=== PATIENT | female | born 1980 | race African-American/Black ===

== ENCOUNTER 2016-11-02 20:40 | Emergency (ER) | payer MEDICAID ==
[~2016-11-02] VITALS: Ht 162.6 cm; Wt 96.6 kg
[~2016-11-02 20:40] MED LIST: METO25 PO; ZOFR4TAB3 SL
[2016-11-02 20:45] VITALS: BP 156/100; PULSE 92; RESP 18; TEMP 98.9; O2SAT 98
[2016-11-02] MEDS ORDERED: predniSONE 20 MG TAB PO ONE (21:15)
[2016-11-02] MEDS ORDERED: diphenhydrAMINE HCL 50 MG CAP PO ONE (21:15)
[2016-11-02] MEDS ORDERED: PRED20 PO (21:21)
[2016-11-02] MEDS ORDERED: FAMO1TAB37 PO (21:21)
--- NOTE | 2016-11-02 21:25 | PD ---
HPI Chief Complaint: Skin Problem Time Seen by Provider: 21:00 Travel History International Travel<30 days: No Contact w/Intl Traveler<30days: No Traveled to known affect area: No History of Present Illness HPI 35-year-old female presents emergency department for evaluation of rash on her upper arms for 3 days. Patient reports the rash originated approximately 3 days ago and has since waxed and waned throughout the day. She reports at times the rash is almost completely resolved and then reappears. She reports the rash is pruritic. She denies any new foods, medications, lotions, detergents. No one else in the home with similar symptoms. No previous allergic reactions. She denies change in voice, difficulty swallowing, shortness of breath, wheezing. She denies any home remedies to treat the rash. PFSH Past Medical History Diminished Hearing: No Hypertension: Yes ?: Not LMP: TWO DAYS AGO : 3 Para: 3 Miscarriage: 0 : 0 Social History Alcohol Use: Yes (OCCASSIONAL WEEKEND) Tobacco Use: No Substance Use: Yes (marijuana occ) Allergies-Medications (Allergen,Severity, Reaction): Coded Allergies: No Known Allergies (Verified , 11/02/16) Reported Meds & Prescriptions Reported Meds & Active Scripts Active Pepcid (Famotidine) 20 Mg Tab 20 Mg PO BID Prednisone 20 Mg Tab 40 Mg PO DAILY Take 40 mg (2 tablets) daily for 5 days Review of Systems Except as stated in HPI: all other systems reviewed are Neg Physical Exam Narrative GENERAL: Well-nourished, well-developed patient. SKIN: Focused skin assessment warm/dry. Urticarial rash bilateral upper extremities. The rash does not extend into the trunk. HEAD: Normocephalic. EYES: No scleral icterus. No injection or drainage. No oropharyngeal swelling. NECK: Supple, trachea midline. No JVD or lymphadenopathy. CARDIOVASCULAR: Regular rate and rhythm without murmurs, gallops, or rubs. RESPIRATORY: Breath sounds equal bilaterally. No accessory muscle use. No wheezing or rhonchi. No respiratory distress. GASTROINTESTINAL: Abdomen soft, non-tender, nondistended. MUSCULOSKELETAL: No cyanosis, or edema. BACK: Nontender without obvious deformity. No CVA tenderness. Data Data Last Documented VS Vital Signs Date Time Temp Pulse Resp B/P Pulse Ox O2 Delivery O2 Flow Rate FiO2 11/02/16 20:45 98.9 92 18 156/100 98 Orders Prednisone (Deltasone) (11/02/16 21:15) Diphenhydramine (Benadryl) (11/02/16 21:15) [facility] Medical Decision Making Medical Screen Exam Complete: Yes Emergency Medical Condition: Yes Differential Diagnosis Urticaria, unspecified rash, contact dermatitis Narrative Course 35-year-old female presents emergency department for evaluation of a rash on her upper extremities for the last 3 days. Patient reports a waxing and waning pattern of the rash. She denies previous history of anaphylaxis or allergic reactions. She denies oropharyngeal swelling, shortness of breath, wheezing. On exam the rash is localized to the lower aspect of her upper extremities. The rash is urticarial in nature. Patient will be treated with steroids and Benadryl. Return precautions discussed with patient. Diagnosis Primary Impression: Rash and nonspecific skin eruption Referrals: engineering librarian Additional Instructions: Take the medication as prescribed. Take [id number] Benadryl 25 mg by mouth every 6 hours as needed for itching and hives. Return to emergency department immediately if he developed shortness of breath, difficulty swallowing, wheezing, or any new concerning symptom. Make an appointment for follow-up with her primary doctor or engineering librarian Scripts Famotidine (Pepcid)20 Mg Tab20 Mg PO BID #8 TAB Ref 0 Prov:Tavia Pugh 11/02/16 Prednisone 20 Mg Tab40 Mg PO DAILY #8 TAB Take 40 mg (2 tablets) daily for 5 days Prov:Tavia Pugh 11/02/16 Disposition: 01 DISCHARGE HOME Condition: Stable Tavia Pugh Nov 02, 2016 21:25
== END 2016-11-02 21:30 | disposition home or self-care (01) ==
LOC: PHEFT 20:40
DX: R21 Rash and other nonspecific skin eruption (principal); I10 Essential (primary) hypertension
CPT/HCPCS: 99283; J7512; Q0163

== ENCOUNTER 2017-05-23 22:04 | Emergency (ER) | payer MEDICAID ==
[~2017-05-23] VITALS: Ht 162.6 cm; Wt 95.0 kg
[~2017-05-23 22:04] MED LIST changes: +FAMO1TAB37 PO; -METO25 PO; +PRED20 PO; -ZOFR4TAB3 SL
[2017-05-23 22:09] VITALS: BP 156/100; PULSE 82; RESP 18; TEMP 98.1; O2SAT 98
[2017-05-23] MEDS ORDERED: METO50TA PO (22:15)
[2017-05-23] MEDS ORDERED: IBUP-232 PO (22:58)
--- NOTE | 2017-05-23 22:58 | PD ---
HPI Chief Complaint: Pain: Acute or Chronic Time Seen by Provider: 22:51 Travel History International Travel<30 days: No Contact w/Intl Traveler<30days: No Traveled to known affect area: No History of Present Illness HPI The patient is a 36-year-old female who complains of pain in the left lateral upper leg and left lateral lower leg around the knee for 4 days. She denies any swelling. She is not on control pills. She has not had any prolonged immobilization. She does not have a history of pulmonary emboli or DVT. She states she cannot be . She denies any chest pain or shortness of breath. PFSH Past Medical History Cardiovascular Problems: Yes (HTN) Diminished Hearing: No Hypertension: Yes Immunizations Current: No Tetanus Vaccination: > 5 Years Influenza Vaccination: No ?: Not LMP: 04-23-17 : 3 Para: 3 Miscarriage: 0 : 0 Past Surgical History Surgical History: No Previous Surgery Social History Alcohol Use: Yes (OCCASSIONAL WEEKEND) Tobacco Use: No Substance Use: Yes (marijuana occ) Allergies-Medications (Allergen,Severity, Reaction): Coded Allergies: No Known Allergies (Verified Adverse Reaction, Unknown, 05/23/17) Reported Meds & Prescriptions Reported Meds & Active Scripts Active Reported Metoprolol Tartrate 50 Mg Tab 50 Mg PO BID Review of Systems Except as stated in HPI: all other systems reviewed are Neg Physical Exam Narrative GENERAL: The patient is alert, oriented 3 in minimal apparent distress with her left leg discomfort. She is slightly obese. Her vital signs show blood pressure 156/100 but otherwise normal. SKIN: Focused skin assessment warm/dry. HEAD: Atraumatic. Normocephalic. EYES: Pupils equal and round. No scleral icterus. No injection or drainage. ENT: No nasal bleeding or discharge. Mucous membranes pink and moist. NECK: Trachea midline. No JVD. CARDIOVASCULAR: Regular rate and rhythm. No murmur appreciated. RESPIRATORY: No accessory muscle use. Clear to auscultation. Breath sounds equal bilaterally. GASTROINTESTINAL: Abdomen soft, non-tender, nondistended. Hepatic and splenic margins not palpable. MUSCULOSKELETAL: No obvious deformities. No clubbing. No cyanosis. No edema. There is no calf vein tenderness present, no swelling of the left leg and Homans sign is negative and no cord is palpated in the calf. NEUROLOGICAL: Awake and alert. No obvious cranial nerve deficits. Motor grossly within normal limits. Normal speech. PSYCHIATRIC: Appropriate mood and affect; insight and judgment normal. Data Data Last Documented VS Vital Signs Date Time Temp Pulse Resp B/P (MAP) Pulse Ox O2 Delivery O2 Flow Rate FiO2 05/23/17 22:15 (118) 05/23/17 22:09 98.1 82 18 98 MDM Medical Decision Making Medical Screen Exam Complete: Yes Emergency Medical Condition: Yes Medical Record Reviewed: Yes Differential Diagnosis Muscle strain leg, DVT-unlikely, fasciitis left leg, myofascial strain left leg Narrative Course At this time the patient has a muscle ache in her left leg without any indications of a DVT. The patient was told the signs and symptoms of DVT and told to return immediately should they occur. Diagnosis Primary Impression: Muscle strain of left lower leg Patient Instructions: General Instructions Departure Forms: Tests/Procedures Additional Instructions: If you have any of the signs that mentioned like swelling, tenderness in the back of the leg or a "cord" palpated in the back of the leg please return immediately and we will do an ultrasound. Otherwise follow-up with her primary care physician this week. Take the ibuProfen one tablet 3 times daily. Med/Other Pt SpecificInfo: Prescription(s) given Scripts Ibuprofen (Ibuprofen) 600 Mg Tab 600 MG PO TID, #44 TAB 0 Refills Prov: Jv Ingram MD 05/23/17 Disposition: 01 DISCHARGE HOME Condition: Stable Jv Ingram MD May 23, 2017 22:58
[2017-05-23] MEDS ORDERED: IBUPROFEN 600 MG TAB PO ONE (23:00)
== END 2017-05-23 23:18 | disposition home or self-care (01) ==
LOC: PHEFT 22:04
DX: S86.912A Strain of unspecified muscle(s) and tendon(s) at lower leg level, left leg, initial encounter (principal); I10 Essential (primary) hypertension
CPT/HCPCS: 99283

== ENCOUNTER 2017-09-30 21:41 | Emergency (ER) | payer MEDICAID ==
[~2017-09-30] VITALS: Ht 162.6 cm; Wt 96.4 kg
[~2017-09-30 21:41] MED LIST changes: -FAMO1TAB37 PO; +IBUP-232 PO; +METO50TA PO; -PRED20 PO
[2017-09-30 21:52] VITALS: BP 177/100; PULSE 85; RESP 16; TEMP 99.1; O2SAT 99
[2017-09-30 22:55] VITALS: BP 168/76; PULSE 72; RESP 16; O2SAT 98
--- NOTE | 2017-09-30 22:59 | PD ---
HPI Chief Complaint: Rn Circulating Problem/Complaint Time Seen by Provider: 22:56 Travel History International Travel<30 days: No Contact w/Intl Traveler<30days: No History of Present Illness HPI 36-year-old female patient with history of previous vaginal yeast infection, currently about 5 weeks according to her dates, does not have [facility] follow-up yet, here because she has had whitish discharge and itching, thinks she has a vaginal yeast infection. She denies any abdominal pains, fevers, bleeding, or other symptoms. Modifying Factors: None Associated Signs & Symptoms: Vaginal area itching Risk Factors: PFSH Past Medical History Cardiovascular Problems: Yes (HTN) Diminished Hearing: No Hypertension: Yes Immunizations Current: No : 3 Para: 3 Miscarriage: 0 : 0 Social History Alcohol Use: Yes (OCCASSIONAL WEEKEND) Tobacco Use: No Substance Use: Yes (marijuana occ) Allergies-Medications (Allergen,Severity, Reaction): Coded Allergies: No Known Allergies (Verified Adverse Reaction, Unknown, 05/23/17) Reported Meds & Prescriptions Reported Meds & Active Scripts Active Ibuprofen 600 Mg Tab 600 Mg PO TID Reported Metoprolol Tartrate 50 Mg Tab 50 Mg PO BID Review of Systems Except as stated in HPI: all other systems reviewed are Neg Physical Exam Narrative GENERAL: Well-developed young -[place] female patient currently in no acute distress. Awake and oriented 3. SKIN: Focused skin assessment warm/dry. HEAD: Atraumatic. Normocephalic. EYES: Pupils equal and round. No scleral icterus. No injection or drainage. ENT: No nasal bleeding or discharge. Mucous membranes pink and moist. NECK: Trachea midline. No JVD. Supple. CARDIOVASCULAR: Regular rate and rhythm. No murmur appreciated. RESPIRATORY: No accessory muscle use. Clear to auscultation. Breath sounds equal bilaterally. GASTROINTESTINAL: Abdomen soft, non-tender, nondistended. Hepatic and splenic margins not palpable. GENITOURINARY: Normal external genitalia without lesions or erythema. Vaginal vault without blood, but with notable whitish drainage. Cervical os was closed without drainage. No cervical motion tenderness. Uterus nontender. Bilateral adnexa nontender without masses. MUSCULOSKELETAL: No obvious deformities. No clubbing. No cyanosis. No edema. NEUROLOGICAL: Awake and alert. No obvious cranial nerve deficits. Motor grossly within normal limits. Normal speech. PSYCHIATRIC: Appropriate mood and affect; insight and judgment normal. Data Data Last Documented VS Vital Signs Date Time Temp Pulse Resp B/P (MAP) Pulse Ox O2 Delivery O2 Flow Rate FiO2 09/30/17 21:52 99.1 85 16 177/100 (125) 99 Orders Orders Gc And Chlamydia Pcr (09/30/17 22:13) Wet Prep Profile (09/30/17 22:13) Urinalysis - C+S If Indicated (09/30/17 22:13) Ed Urine Pregnancytest Poc (09/30/17 22:13) Beta Hcg (Quant/Titer) (09/30/17 22:56) Urine Culture (09/30/17 22:55) Labs Laboratory Tests Test 09/30/17 22:55 09/30/17 23:34 Urine Color YELLOW Urine Turbidity SL CLOUDY Urine pH 7.0 Urine Specific Young 1.015 Urine Protein NEG mg/dL Urine Glucose (UA) NEG mg/dL Urine Ketones NEG mg/dL Urine Occult Blood NEG Urine Nitrite NEG Urine Bilirubin NEG Urine Urobilinogen 0.2 MG/DL Urine Leukocyte Esterase LARGE Urine RBC 0-3 /hpf Urine WBC 9-14 /hpf Urine WBC Clumps FEW Urine Squamous Epithelial Cells 6-8 /hpf Urine Amorphous Sediment FEW Urine Bacteria OCC /hpf Urine Yeast (Budding) FEW Microscopic Urinalysis Comment CULTURE INDICATED Clue Cells (Wet Prep) NONE SEEN Vaginal Trichomonas (Wet Prep) NONE SEEN Vaginal Yeast (Wet Prep) PRESENT Human Chorionic Gonadotropin, Quant 02557 MIU/ML MDM Medical Decision Making Medical Screen Exam Complete: Yes Emergency Medical Condition: Yes Medical Record Reviewed: Yes Interpretation(s) Laboratory Tests Test 09/30/17 22:55 09/30/17 23:34 Urine Leukocyte Esterase LARGE (NEG) Urine WBC 9-14 /hpf (0-5) Urine WBC Clumps FEW (NONE) Urine Squamous Epithelial Cells 6-8 /hpf (0-5) Urine Bacteria OCC /hpf (NONE) Urine Yeast (Budding) FEW (NONE) Vaginal Yeast (Wet Prep) PRESENT (NONE) Human Chorionic Gonadotropin, Quant 03918 MIU/ML (0-5) Differential Diagnosis Yeast infection versus bacterial vaginosis versus cervicitis versus UTI Narrative Course Lab work shows a UTI and she has fungal vaginitis as well. My plan would be to treat both. Transabdominal ultrasound done by me shows twin gestation with good heart tones on both twins. At this point, my plan would be to release the patient would follow-up to [facility]. Return for any worsening in discharge, abdominal pain, any spotting, new issues as needed. The plan was discussed with her and she states understanding. Diagnosis Primary Impression: UTI (urinary tract infection) Additional Impressions: Rita vaginitis Early stage of Med/Other Pt SpecificInfo: Prescription(s) given Scripts Nystatin Topical (Nystatin Topical) 100,000 unit/gm Cream 1 APPLIC VAGINAL DAILY for Infection, #14 GM 0 Refills Prov: Jose Amaro MD 10/01/17 Nitrofurantoin Monohydrate Macrocrystals (Macrobid) 100 Mg Cap 100 MG PO BID for Infection for 7 Days, #14 CAP 0 Refills Prov: Jose Amaro MD 10/01/17 Disposition: 01 DISCHARGE HOME Condition: Stable Jose Amaro MD September 30, 2017 22:59
[2017-09-30 23:11] LABS: BILIRUBIN, URINE NEG (NEG); BLOOD, URINE NEG (NEG); GLUCOSE,URINE NEG (NEG); KETONE, URINE NEG (NEG); NITRITE,URINE NEG (NEG); URINE COLOR YELLOW (YELLW/STRAW); URINE LEUKOCYTE ESTERASE LARGE (NEG)
[2017-09-30 23:18] LABS: AMORPHOUS SEDIMENT, URINE FEW; BACTERIA, URINE OCC /hpf; RBC, URINE 0-3 /hpf (0-3); WHITE BLOOD CELL CLUMPS FEW
[2017-09-30 23:40] VITALS: BP 148/76; PULSE 72; RESP 16; O2SAT 99
[2017-10-01 00:35] VITALS: BP 136/68; PULSE 70; RESP 16; O2SAT 99
[2017-10-01] MEDS ORDERED: NYST15T VAGINAL (01:25)
[2017-10-01] MEDS ORDERED: MACR100C2 PO (01:25)
[2017-10-01 01:55] VITALS: BP 143/75
== END 2017-10-01 01:55 | disposition home or self-care (01) ==
LOC: PHED 21:41
DX: O23.591 Infection of other part of genital tract in pregnancy, first trimester (principal); O23.41 Unspecified infection of urinary tract in pregnancy, first trimester; O30.001 Twin pregnancy, unspecified number of placenta and unspecified number of amniotic sacs, first trimester; O16.1 Unspecified maternal hypertension, first trimester
CPT/HCPCS: 81001; 84702; 84703; 87086; 87210; 87491; 87591; 99284

== ENCOUNTER → 2017-11-10 | Outpatient (CLI) | payer MEDICAID ==
[~2017-11-10] MED LIST changes: +MACR100C2 PO; +NYST15T VAGINAL
== END ==
LOC: HPND 10:36
PROVIDERS: ATTEND Obstetrics & Gynecology
DX: O30.041 Twin pregnancy, dichorionic/diamniotic, first trimester (principal); O09.521 Supervision of elderly multigravida, first trimester; Z36.82 Encounter for antenatal screening for nuchal translucency
CPT/HCPCS: 36415; 76813; 76814